=== PATIENT | male | born 1965 | race Caucasian/White ===

== ENCOUNTER 2019-06-30 05:33 | Day surgery (SDC) | payer BC ==
[~2019-06-30 05:33] MED LIST: Buffered Lidocaine 1% SYRIN* 1 ML/SYRINGE INTRADERM ONE
[2019-06-30] MEDS ORDERED: NS 0.45% 1000 ML BAG* 1,000 ML IV SCH (06:00)
[2019-06-30] MEDS ORDERED: Dexamethasone IV* 4 MG/ML 1 ML (4 MG) IV SLOW PU ONE (06:00)
[2019-06-30] MEDS ORDERED: Famotidine IV* 10 MG/ML 2 ML (20 mg) IV ONE (06:00)
[2019-06-30] MEDS ORDERED: Famotidine IV* 10 MG/ML 2 ML (20 mg) ONE (06:04)
[2019-06-30] MEDS ORDERED: ceFAZolin 2 GM in NS PREMIX(*) 2 GM/100 ML BAG IVPB ONE (06:04)
[2019-06-30] MEDS ORDERED: Dexamethasone IV* 4 MG/ML 1 ML (4 MG) ONE (06:04)
[2019-06-30 06:42] LABS: INR 1.06 (0.82-1.09)
[2019-06-30] MEDS ORDERED: Heparin DIALYSIS ONLY(*) 1,000 UNITS/ML VIAL ONE (07:14)
[2019-06-30] MEDS ORDERED: Bupivacaine 0.25% EPI 200,000* 30 ML SDV ONE (07:15)
[2019-06-30] MEDS ORDERED: Midazolam* 1 MG/ML 2 ML VIAL (2 MG) ONE ×2 (07:16→09:41)
[2019-06-30] MEDS ORDERED: KETAMINE HCL* 50 MG/ML 10 ML VIAL ONE (07:16)
[2019-06-30] MEDS ORDERED: Rocuronium* 10 MG/ML VIAL ONE (07:16)
[2019-06-30] MEDS ORDERED: fentaNYL* 50 MCG/ML 2 ML VIAL (100 MCG VIAL) ONE (07:16)
[2019-06-30] MEDS ORDERED: Propofol* 10 MG/ML 20 ML BTL ONE ×2 (07:21→07:58)
[2019-06-30] MEDS ORDERED: Glycopyrrolate IV* 0.2 MG/ML 1 ML VIAL ONE (08:06)
[2019-06-30] MEDS ORDERED: Neostigmine Methylsulfate* 3 MG/3 ML SYRINGE ONE (08:06)
--- NOTE | 2019-06-30 08:48 | OP ---
Operative Report - Blank - Operative Report Date of Operation: 06/30/19 Note: Pre-OP Diagnoses: ESRD Post-op Diagnosis: same Procedure: Laparoscopic placement of peritoneal dialysis catheter Surgeon: Servando Asst: none Anethesia: ALESSIO EBL: minimal IVF: minimal Specimen: none Drains: 62cm curath
[2019-06-30 09:52] VITALS: BP 143/96
--- NOTE | 2019-06-30 11:46 | OP ---
CC: Dr. Jerry Manrique; Dr. Sly Nieves; [facility] OPERATIVE REPORT: DATE OF OPERATION: 06/30/19 DATE OF : 65 SURGEON: Everette Al MD. STRATEGY CONSULTANT: YARON student, Skip Horvath. ANESTHESIA: Local MAC. PRE-OP DIAGNOSIS: End-stage renal disease. POST-OP DIAGNOSIS: End-stage renal disease. OPERATIVE PROCEDURE: Laparoscopic placement of peritoneal dialysis catheter. ESTIMATED BLOOD LOSS: Minimal. FLUIDS: Minimal crystalloid fluid given. IMPLANTS: A 62 cm Curl catheter placed in the peritoneum. DESCRIPTION OF PROCEDURE: The patient was identified in the preoperative area. He was marked, taken care as to where his belt line is. He was then taken the operating room, placed on the operating ta ble in supine position. Preoperative antibiotics were given. Sequential devices were placed on bila teral lower extremities. General anesthesia was induced. The patient's abdomen was clipped of hair and prepped and draped in a standard sterile fashion and the time-out was performed. An subcostal incision was made on the left. This was deepened down to the anterior fascia, which was elevated and a Veress needle was inserted into the abdominal cavity, which was then allowed to insuf flate to a pressure of 15 mmHg. An 8 mm Optical trocar was then inserted through the same incision a nd laparoscope was inserted. There was no evidence of injury from trocar insertion. The Veress need le was then removed. Views of the abdomen showed adherent omentum to the anterior abdominal wall, mostly in the superior a spect of the abdomen. The pelvis appeared free of adhesions. Next, a 5-mm trocar was inserted under direct vision in the left lower quadrant. Next, a 62 cm Curl catheter was inserted into the abdomen a nd then the working portion placed into the deep pelvis under direct vision. Next, a 5-mm trocar was tunneled through the left rectus muscle. The catheter was grasped and retrie rama through this ensuring both cuffs were outside of the abdomen. We then tunneled this up and over t owards our planned exit site. The dialysate flowed easily and was removed easily. We then allowed t he abdomen to collapse and all incisions were closed with 4-0 Monocryl subcuticular suture. Steri-St rips and sterile dressing was applied. The patient tolerated the procedure well, he was woken up and transferred to the PACU in stable condition. [id number]/[facility] #: [id number]
== END 2019-06-30 09:30 | disposition home or self-care (01) ==
LOC: OR 05:33
PROVIDERS: ATTEND Surgery
DX: N18.6 End stage renal disease (principal); D68.51 Activated protein C resistance; Z86.718 Personal history of other venous thrombosis and embolism; Z79.01 Long term (current) use of anticoagulants; Z68.39 Body mass index [BMI] 39.0-39.9, adult; I12.0 Hypertensive chronic kidney disease with stage 5 chronic kidney disease or end stage renal disease
CPT/HCPCS: 36415; 85610; J0690; J1100; J1644; J2250; J2704; J2710; J3010

== ENCOUNTER → 2019-07-29 08:06 | Day surgery (SDC) | payer BC ==
[~2019-07-29 08:06] MED LIST changes: +Bupivacaine 0.25% EPI 200,000* 30 ML SDV ONE; +Cisatracurium* 2 MG/ML MDV 5 ML ONE; +Dexamethasone IV* 4 MG/ML 1 ML (4 MG) ONE; +EPHEDrine (Pressors)* 50 MG/ML VIAL ONE; +Famotidine IV* 10 MG/ML 2 ML (20 mg) IV ONE; +Famotidine IV* 10 MG/ML 2 ML (20 mg) ONE; +Glycopyrrolate IV* 0.2 MG/ML 1 ML VIAL ONE; +Heparin DIALYSIS ONLY(*) 1,000 UNITS/ML VIAL ONE; +Lidocaine 2% PF * 5 ML VIAL ONE; +Midazolam* 1 MG/ML 5 ML VIAL (5 MG) ONE; +NS 0.45% 1000 ML BAG* 1,000 ML IV SCH; +Naloxone* 0.4 MG/ML 1 ML VIAL IV PRN; +Neostigmine Methylsulfate* 1 MG/ML 10 ML VIAL (1 mg/ml) ONE; +Neostigmine Methylsulfate* 3 MG/3 ML SYRINGE ONE; +Ondansetron INJ* 2 MG/ML VIAL IV PRN; +Ondansetron INJ* 2 MG/ML VIAL ONE; +Phenylephrine 40 MCG/ML SYRINGE ONE; +Propofol* 10 MG/ML 20 ML BTL ONE; +ceFAZolin 2 GM PREMIX in ORs 2 GM/50 ML BAG ONE; +fentaNYL* 50 MCG/ML 2 ML VIAL (100 MCG VIAL) ONE
[2019-07-29 10:53] LABS: INR 1.31 (0.82-1.09)
[2019-07-29 11:04] LABS: BUN/Creatinine Ratio 13.1 (8-20); Calcium 7.2 mg/dL (8.6-10.3); EGFR African American 12.8 (>60); EGFR Non-African American 10.6 (>60)
[2019-07-29 11:05] LABS: Potassium 5.6 mmol/L (3.5-5.0)
--- NOTE | 2019-07-29 12:59 | BRIEFOPN ---
Brief Operative/Procedure Note - Operation Details Pre-Op Diagnosis: CKD Post-Op Diagnosis: CKD Procedures: Diagnostic laparoscopy, revision of peritoneal dialysis catheter/ CKD Surgeon(s)/Proceduralists: Dr. Al. Assist: YARON Garcia Anesthesia: GETA Estimated Blood Loss: <50cc Findings: As above Specimen(s)/Culture(s) Description: None Complications: None
[2019-07-29] MEDS: fentaNYL* 50 MCG/ML 2 ML VIAL (100 MCG VIAL) IV PRN ×2 (13:27→13:39)
[2019-07-29 14:36] VITALS: BP 111/71
--- NOTE | 2019-08-03 03:11 | OP ---
CC: [facility]; [facility]; Primary Care Doctor OPERATIVE REPORT: DATE OF OPERATION: 07/29/19 DATE OF : 65 SURGEON: Everette Al MD TRANSITIONAL LIVING SPECIALIST: YARON Garcia ANESTHESIA: General. PRE-OP DIAGNOSIS: Endstage renal disease with malfunctioning peritoneal dialysis catheter. POST-OP DIAGNOSIS: Endstage renal disease with malfunctioning peritoneal dialysis catheter. OPERATIVE PROCEDURE: Diagnostic laparoscopy and revision of peritoneal dialysis catheter with sigmoi dopexy. ESTIMATED BLOOD LOSS: Minimum. SPECIMENS: None. INDICATIONS: Liam is a 54-year-old gentleman who underwent a laparoscopic placement of peritoneal dialysis catheter last month. This had caused some discomfort when draining earlier this month that converted into poor draining overall with approximately 50% of the input being unable to be drained. I discussed the case with the patient in my office and recommended a diagnostic laparoscopic evaluat ion with possibility of exchange of the catheter. The patient agreed to it. DESCRIPTION OF PROCEDURE: On day of surgery, he was marked, consent was signed. We went back to the operating room, placed him on the operating table in supine position. Preoperative antibiotics were given. Sequential devices were placed on bilateral lower extremities. General anesthesia was induce d. Mckeon catheter was inserted and approximately 800 cc was emptied. By the end of the case, howeve r, there was about 2 L in the bag and it was removed at the end of the case. The patient's abdomen w as clipped off hair and prepped and draped in a standard surgical fashion and painted with Betadine a nd the peritoneal dialysis catheter was maintained in its place with the additional tubing at the naye e prep. A time-out was performed. A left upper quadrant incision that had been made earlier was reopened and we entered through this. A Veress needle was attempted to be placed in the abdomen, this proved somewhat difficult and rather placed it at the umbilicus with elevation of the umbilical fold. The abdomen was insufflated well and then an optical 8-mm trocar was inserted through the left upper quadrant incision site. Lapa roscope was inserted and the Veress needle was intact without injury to any underlying structures. Review of the abdomen showed omentum adhered to the midline as we have seen before, the Lab-Band tubi ng was in place. We reviewed the pelvis and saw that the tubing for the peritoneal dialysis was appr opriately positioned and extended to the deep pelvis. The table was placed in Trendelenburg. A 5-mm trocar was placed in the left lower quadrant incision. The sigmoid colon, which was quite large with 1 diverticula on it. It was brought out of the pelv is. This is where we could see the tubing. The tubing was brought out of the pelvis and I clamped th e distal portion of the tubing and injected fluid with ease showing that all the holes were open and patent. Next, bringing the sigmoid colon out of the pelvis, I felt that the significant fat invested on this might attribute to why he was having poor outflow during dialysis. So, decision was made to perform a sigmoidopexy. A separate incision was made in the left lower quadrant. Using 0 Vicryl suture, we p icked up a portion of the tristian- sigmoidal fat and attempted to bring this up to the abdominal wall, w hen the fat would displace and it did not hold, I converted it to a #0 Vicryl Endoloop and placed thi s around a good portion of the epiploica. This was then tied to the anterior abdominal wall and then the tubing was placed back into the pelvis. A full bag of dialysate was run with ease and then also drained. While this was occurring, we allowed the abdomen to collapse, trocar was removed under dir ect vision. All incisions were reapproximated with 4-0 Monocryl subcuticular sutures, Steri-Strips a nd sterile dressing were applied. Additional tubing was applied to the peritoneal dialysis catheter as well. The patient was woken up and transferred to PACU. It was at this time prior to removal of the Mckeon catheter that I found almost 2500 cc of urine and felt the patient may be suffering with ur inary retention and that may be part of the reason why he was suffering from poor outflow. In the recovery room, I discussed with the patient and he will be discharged home to follow up in my office. [id number]/[facility] #: [id number]
== END | disposition home or self-care (01) ==
LOC: OR 08:06
PROVIDERS: ATTEND Surgery
DX: T85.611A Breakdown (mechanical) of intraperitoneal dialysis catheter, initial encounter (principal); N18.6 End stage renal disease; I12.9 Hypertensive chronic kidney disease with stage 1 through stage 4 chronic kidney disease, or unspecified chronic kidney disease; D68.51 Activated protein C resistance; E78.5 Hyperlipidemia, unspecified; Z79.01 Long term (current) use of anticoagulants
CPT/HCPCS: 36415; 80048; 85610; J0690; J1100; J1644; J2250; J2405; J2704; J2710; J3010

== ENCOUNTER 2019-08-12 13:05 | Day surgery (SDC) | payer BC ==
[~2019-08-12 13:05] MED LIST changes: -Bupivacaine 0.25% EPI 200,000* 30 ML SDV ONE; -Cisatracurium* 2 MG/ML MDV 5 ML ONE; -Dexamethasone IV* 4 MG/ML 1 ML (4 MG) ONE; +Dexamethasone TAB* 4 MG PO ONE; +DiMENhydriNATE IV* 50 MG/ML VIAL IV PUSH PRN; -EPHEDrine (Pressors)* 50 MG/ML VIAL ONE; -Famotidine IV* 10 MG/ML 2 ML (20 mg) ONE; -Glycopyrrolate IV* 0.2 MG/ML 1 ML VIAL ONE; +HYDROmorphone INJ1* 1 MG/ML SYRINGE IV PRN; -Heparin DIALYSIS ONLY(*) 1,000 UNITS/ML VIAL ONE; +Lactated Ringers 1000 ML Bag* 1,000 ML IV SCH; -Lidocaine 2% PF * 5 ML VIAL ONE; -Midazolam* 1 MG/ML 5 ML VIAL (5 MG) ONE; -NS 0.45% 1000 ML BAG* 1,000 ML IV SCH; -Neostigmine Methylsulfate* 1 MG/ML 10 ML VIAL (1 mg/ml) ONE; -Neostigmine Methylsulfate* 3 MG/3 ML SYRINGE ONE; -Ondansetron INJ* 2 MG/ML VIAL IV PRN; -Ondansetron INJ* 2 MG/ML VIAL ONE; +Ondansetron ODT TAB* 4 MG PO ONE; +PROCHLORPERAZINE INJ 5 MG/ML 2 ML VIAL IV PRN; -Phenylephrine 40 MCG/ML SYRINGE ONE; -Propofol* 10 MG/ML 20 ML BTL ONE; -ceFAZolin 2 GM PREMIX in ORs 2 GM/50 ML BAG ONE; +fentaNYL* 50 MCG/ML 2 ML VIAL (100 MCG VIAL) IV PRN; -fentaNYL* 50 MCG/ML 2 ML VIAL (100 MCG VIAL) ONE; +oxyCODONE TAB* 5 MG TAB PO PRN
[2019-08-12] MEDS ORDERED: ceFAZolin 2 GM PREMIX in ORs 2 GM/50 ML BAG ONE (14:30)
[2019-08-12] MEDS ORDERED: Famotidine IV* 10 MG/ML 2 ML (20 mg) ONE (14:30)
[2019-08-12] MEDS ORDERED: Dexamethasone TAB* 4 MG ONE (14:30)
[2019-08-12] MEDS ORDERED: Ondansetron ODT TAB* 4 MG ONE (14:30)
[2019-08-12 15:23] LABS: INR 1.28 (0.82-1.09)
[2019-08-12 15:38] LABS: BUN/Creatinine Ratio 8.5 (8-20); Calcium 7.7 mg/dL (8.6-10.3); EGFR African American 11.6 (>60); EGFR Non-African American 9.6 (>60); Potassium 5.9 mmol/L (3.5-5.0)
[2019-08-12] MEDS ORDERED: fentaNYL* 50 MCG/ML 2 ML VIAL (100 MCG VIAL) ONE ×2 (16:31→17:33)
[2019-08-12] MEDS ORDERED: KETAMINE HCL* 50 MG/ML 10 ML VIAL ONE (16:31)
[2019-08-12] MEDS ORDERED: Midazolam* 1 MG/ML 5 ML VIAL (5 MG) ONE (16:31)
[2019-08-12] MEDS ORDERED: Atracurium* 10 MG/ML 10 ML VIAL ONE (16:39)
[2019-08-12] MEDS ORDERED: Heparin 2 UNITS/ML IVPREMIX* 0 ML IV ONE (17:15)
[2019-08-12] MEDS ORDERED: Heparin VIAL(*) 5000 UNITS/ML VIAL (FIVE THOUSAND) ONE (17:19)
[2019-08-12] MEDS ORDERED: Midazolam* 1 MG/ML 2 ML VIAL (2 MG) ONE (17:33)
[2019-08-12] MEDS ORDERED: Rocuronium* 10 MG/ML VIAL ONE (17:36)
[2019-08-12] MEDS ORDERED: Bupivacaine 0.25% EPI 200,000* 30 ML SDV ONE ×2 (17:42→18:54)
[2019-08-12] MEDS ORDERED: ceFAZolin 1 GM ADVAN(*) 1 GM ADDV.VIAL IVPB ONE (17:55)
[2019-08-12] MEDS ORDERED: Propofol* 10 MG/ML 20 ML BTL ONE (17:59)
[2019-08-12] MEDS ORDERED: Succinylcholine* 20 MG/ML 10 ML VIAL ONE (18:25)
[2019-08-12] MEDS ORDERED: Bacitracin OINTMENT* 0.5% 0.5 oz TUBE ONE (19:12)
[2019-08-12] MEDS ORDERED: Sugammadex * 500 MG/5 ML VIAL IV PUSH ONE ×2 (19:19→19:26)
--- NOTE | 2019-08-12 19:55 | OP ---
Operative Report - Blank - Operative Report Date of Operation: 08/12/19 Note: Pre-OP Diagnoses: ESRD, malfunctioning PD catheter Post-op Diagnosis: same Procedure: Laparoscopic replacement of peritoneal dialysis catheter Surgeon: Servando Asst: none Anethesia: ALESSIO EBL: minimal IVF: see anesth document Specimen: none Drains: 62cm curath
[2019-08-12 20:36] VITALS: BP 153/97
[2019-08-12] MEDS ORDERED: oxyCODONE TAB* 5 MG TAB ONE (20:57)
--- NOTE | 2019-08-12 23:16 | OP ---
CC: Dr. Sly Nieves; [facility]; Nephrology at [facility] * DATE OF OPERATION: 08/12/19 DATE OF : 65 SURGEON: Everette Al MD PRE-OP DIAGNOSIS: POST-OP DIAGNOSIS: OPERATIVE PROCEDURE: Laparoscopic replacement of peritoneal dialysis catheter. INDICATIONS: Mr. Wheeler is a 54-year-old gentleman who I placed a peritoneal dialysis catheter in. After an attempt at revision, the patient continued to have poor removal of the fluid, and I made a decision to remove the tubing and place a second one in. I have outlined the details of the procedure to him, going over the risks, benefits, and alternatives that included bleeding, infection, and need for additional procedures, need for open procedure, injury to adjacent organs, infection, and possible need for removal of peritoneal dialysis catheter. DESCRIPTION OF PROCEDURE: The patient was marked appropriately in the preoperative area, consent was signed. He was taken to the operating room where he had antibiotics given. Sequential devices were placed on bilateral lower extremities and general anesthesia was delivered. A Mckeon catheter was inserted and the patient's abdomen was clipped off hair and prepped and draped in a standard surgical fashion with Betadine prep and draping of the site of the PD catheter in the left lower quadrant. A time-out was performed. An up and down incision was made over the catheter at the left rectus muscle. This was deepened down to the catheter which was grasped and freed up from the subcutaneous fat relieving the one cuff. We then cut the tubing so that we would remove the tubing from the exit site of the end. We then dissected down along the tubing to the rectus fascia which was incised and the cuff within the musculature was removed. The abdominal portion of the tubing came out without any difficulty, was passed off as specimen and appeared intact without any fibrinous debris inside it. Attention was then turned to the umbilicus. Veress needle was inserted into the abdominal cavity which was then allowed to insufflate to a pressure of 50 mmHg. The patient tolerated the insufflation well. Optical 8 mm trocar was then placed in the right upper quadrant. Laparoscope was inserted through this and review of the abdomen showed no bleeding. We did have some air exiting through the initial incision site which I should note. We closed with a stitch at the rectus fascia and then closed the skin with skin wyatt. Minimal leakage at this site suggested that we needed to check the fascia again, but we turned our attention to plan for peritoneal dialysis catheter placement and placed a 62 cm curled cath into the abdomen. A 5 mm trocar was then placed in the right lower quadrant and the tubing was then placed in the appropriate position. Next, along the right rectus muscle, a 5 mm trocar was tunneled. The tubing was picked up and delivered through this tunneled incision. The tubing was placed in the appropriate place, but not too deep into the pelvis on this occasion. Then, we tunneled the catheter in a standard fashion to the planned exit site. We hooked up to the dialysate which was inserted and flowed with ease. Next, we turned our attention to the wyatt at the initial incision site. The wyatt were removed and identified the fascia, we placed saline onto the wound and saw where bubbles were and then placed additional 0-Vicryl interrupted sutures at the site until there was no leak. We then irrigated this wound. Hemostasis was achieved and it was re-stapled. We opened up the dialysate for emptying and this emptied well and then the tubing filled with air from the pneumo-peritoneum. We then removed the trocars. It should be noted that again the omentum did not appear to be a part of the problem with regard to this case and I feel that possibly we did not tunnel well along the rectus muscle and placed the initial catheter too low. The incisions along the tubing site were closed with 4-0 Monocryl subcuticular sutures and all additional incisions were closed with skin wyatt. Sterile dressing was applied. We then removed the tubing through the exit site at the last portion of our case and placed antibiotic ointment at the exit site, followed by dressing. The patient tolerated the procedure well. An abdominal binder was placed and he was woken up and transferred back in stable condition. [id number]/[facility] #: [id number] [facility]
== END 2019-08-12 20:59 | disposition home or self-care (01) ==
LOC: OR 13:05
PROVIDERS: ATTEND Surgery
DX: T85.611A Breakdown (mechanical) of intraperitoneal dialysis catheter, initial encounter (principal); N18.6 End stage renal disease; Z99.2 Dependence on renal dialysis; I12.9 Hypertensive chronic kidney disease with stage 1 through stage 4 chronic kidney disease, or unspecified chronic kidney disease; Z86.718 Personal history of other venous thrombosis and embolism; Z79.01 Long term (current) use of anticoagulants
CPT/HCPCS: 36415; 80048; 85610; A9270-GY; J0330; J0690; J1644; J2250; J2704; J3010; J8540